=== PATIENT | male | born 1945 | race Caucasian/White ===

== ENCOUNTER 2019-07-13 22:59 | Observation (INO) ==
[2019-07-13] MEDS ORDERED: APRESOLINE IV ONE (23:33)
--- NOTE | 2019-07-13 23:41 | PROVIDER DOCUMENTATION ---
This chart was entered by Evangelina Spann Scribe, acting as scribe for Jose Miguel Figueroa MD. HPI-General Adult - General Stated Complaint: HIGH BP/TINGLING IN CHEEK&HANDS Time Seen by Provider: 07/13/19 23:21 Source: patient Allergies/Adverse Reactions: Patient Allergies Allergy/AdvReac Type Severity Reaction Status Date / Time Penicillins Allergy Intermediate RASH Verified 07/13/19 23:49 Home Medications: Home Medication List Medication Instructions Recorded Confirmed Last Taken Type Latanoprost 0.005% Oph Soln 1 drop BOTH EYES HS 11/28/13 07/13/19 06/02/19 History [Xalatan 0.005% Oph Soln] Metformin [Glucophage] 2 tab PO QHS 05/13/17 07/13/19 06/02/19 History Amiodarone HCl 200 mg PO QAM 05/26/19 07/13/19 06/03/19 History Apixaban [Eliquis] 5 mg PO BID 05/26/19 07/13/19 06/03/19 History Dorzolamide 2% Oph Soln [Trusopt 1 drp BOTH EYES BID 07/13/19 07/13/19 Unknown History 2% Oph Soln] Losartan/Hydrochlorothiazide 12.5 mg PO QAM 07/13/19 07/13/19 Unknown History [Hyzaar 100-12.5 Tablet] Metoprolol Succinate [Toprol Xl] 200 mg PO QAM 07/13/19 07/13/19 Unknown History Potassium Chloride [Klor-Con M20] 20 meq PO QAM 07/13/19 07/13/19 Unknown History SIMVAstatin [Zocor] 20 mg PO QPM 07/13/19 07/13/19 Unknown History - History of Present Illness -Gen Adult Nature of Presenting Problems: Pt is a 74 yom who presents to the ED via private car w/ a c/o of high BP. Pt states his blood pressure was 166/119. Pt reports flushed face and tingling of the left check. Pt denies chest pain, fever, and nausea. Pt states he takes Hyzaar for his high blood pressure. Upon arrival to ED pt complained of chest pain and SOB to the triage nurse, but denied it during examination w/ provider. Location of Pain/Injury: reports: none Pain Radiation: reports: no radiation Quality of Pain: reports: none Severity: reports: mild Onset/Duration: reports: just prior to arrival Timing: reports: still present Associated Symptoms: reports: other (see hpi) Similar Symptoms Previously?: Yes Recently seen or treated by another doctor?: No Review of Systems - Adult - REVIEW OF SYSTEMS - ADULT Constitutional: reports: see HPI Eyes: reports: no symptoms reported Ears, Nose, Mouth & Throat: reports: no symptoms reported Cardiovascular: reports: no symptoms reported Respiratory: reports: no symptoms reported Gastrointestinal: reports: no symptoms reported Genitourinary: reports: no symptoms reported Musculoskeletal: reports: no symptoms reported Integumentary: reports: no symptoms reported Neurological: reports: no symptoms reported Psychiatric: reports: no symptoms reported Endocrine: reports: no symptoms reported Hematologic/Lymphatic: reports: no symptoms reported Allergic/Immunologic: reports: no symptoms reported All Other Systems: Reviewed and Negative Past History - Adult - PAST MEDICAL HISTORY-ADULT Review of Records: reports: Old Records Reviewed, Nursing Assessment Review, Medications Reviewed, Social history reviewed & non-contributory. Major Childhood Illnesses: reports: denies history Cardiovascular: reports: A-Fib, HTN, hyperlipidemia, pacemaker Respiratory: reports: sleep apnea Gastrointestinal: reports: denies history Obstetrical/Gynecological: reports: denies history Genitourinary: reports: denies history Musculoskeletal: reports: denies history Neurological: reports: denies history Endocrine/Immune: reports: Diabetes Other Conditions: reports: denies history - PRIOR SURGERIES/PROCEDURES Surgical/Procedure History: reports: pacemaker, tonsillectomy, hernia repair, other (TURP) - IMMUNIZATION STATUS Childhood Immunizations: See Nurse Assessment Flu Vaccine: See Nurse Assessment - FAMILY HISTORY Family History: reviewed, not pertinent - SOCIAL HISTORY Smoking: pipe Substance Use: none/never, denies Alcohol Use Frequency: never Physical Exam-General - PHYSICAL EXAM-ADULT Initial Vital Signs Reviewed: Yes - CONSTITUTIONAL General Appearance: alert, no apparent distress - EYES Eyes: PERRL/EOMI - HEAD, EARS, NOSE, MOUTH & THROAT HENMT: moist mucous membranes - NECK Neck: non-tender, full range of motion - RESPIRATORY Respiratory: chest non-tender, lungs clear, normal breath sounds, no pleuratic chest pain, no respiratory distress - CARDIOVASCULAR Cardiovascular: normal peripheral pulses, regular rate, rhythm, no edema, no gallop, no JVD, no murmur - GASTROINTESTINAL (ABDOMEN) Abdominal Exam: non tender, soft - MUSCULOSKELETAL Extremity: normal range of motion, non-tender - SKIN Integumentary: normal color, warm/dry - NEUROLOGIC Neurologic: grossly normal, no motor/sensory deficits - PSYCHIATRIC Psych/Mental Status: oriented x 3, anxious Progress - PLAN OF CARE/RESULTS Progress/Plan/Lab Results: Vital Signs - 8 hr 07/13/19 23:05 Temperature 97.9 F Pulse Rate 76 Respiratory Rate 20 Blood Pressure 163/129 O2 Sat by Pulse Oximetry 95 Result Diagrams: 07/14/19 00:06 07/14/19 00:06 - EKG 1 Time of EKG reading by physician:: 23:16 EKG Read and Signed by:: Jose Miguel Figueroa EKG Interpretation (*Must complete 3 of following elements*): Abnormal (AV dual- paced rhythm with frequent ventricular-paced complexes) Rate: 70 Rhythm: AV dual-paced rhythm with frequent ventricular-paced complexes [place]: normal QRS: normal MT Interval: normal ST Wave: normal - CONSULTS/PCP/HOSPITALIST Notification #1 *Consult/PCP/Hospitalist*: Dr. Rudolph, hospitalist Time Discussed: 01:15 Consult Disposition: Admit Departure - Departure Date of Disposition Decision: 07/13/19 Time of Disposition Decision: 01:25 DIAGNOSIS: Uncontrolled hypertension Chest pain Qualifiers: Chest pain type: unspecified Qualified Code(s): R07.9 - Chest pain, unspecified Disposition: ADMITTED INPATIENT 09 Certified Medical Emergency: Emergent Condition: Stable Additional Instructions: ED Follow Up Instructions: You have been treated by a care provider in the Emergency Department. These instructions are being provided to you so you can have an understanding of how to care for yourself upon discharge. Upon discharge from the Emergency Department, you are responsible for making arrangements for follow-up care by a physician of your choice. Take all prescribed medications as directed. Return to the Emergency Department immediately for any new or worsening symptoms. You may call the Physician Referral phone number at [phone] to obtain a list of Physicians who are taking new patients. Referrals and Follow-Ups: Barber Mancia MD [Primary Care Provider] - - Critical Care Note This patient required my direct & personal management of CC.: No Attestation - Physician/ SCAR Attestation Patient care was provided by Advanced Practice Provider:: No The physician spent face to face time with patient:: Yes Advanced Practice Provider documentation review:: Supervising physician onsite and consulted in the evaluation and care of this patient. The physician did have a face to face encounter with the patient. - HEART Score HEART Score: History: Slightly Suspicious HEART Score: ECG: Normal HEART Score: Age: > or = 65 Years HEART Score: Risk Factors for Atherosclerotic Disease: > or = 3 Risk Factors or History of Atherosclerotic Disease HEART Score: Troponin: < or = Normal Limit Total HEART Score:: 4 This chart was documented by the indicated scribe, (Evangelina Spann, [place]) and accurately reflects the services I performed and decisions made by me, Jose Miguel Figueroa MD, as attested by the provider's signature.
[2019-07-14 00:19] LABS: BASO# 0.02 X1000 (0.0-0.2); BASO% 0.4 % (0.0-0.8); EOS# 0.11 X1000 (0.0-0.7); EOS% 2.1 % (0.0-10.0); HEMATOCRIT 43.1 % (42.0-52.0); HEMOGLOBIN 15.1 g/dL (14.0-18.0); LYMPH% 28.2 % (20.5-51.1); MCH 30.8 PG (27-31); MCV 87.8 FL (81-99); MONO# 0.34 X1000 (0.11-0.59); MONO% 6.4 % (1.7-9.3); MPV 10.6 FL (7.4-10.4); NEUT# 3.35 X1000 (1.4-6.5); NEUT% 62.9 % (42.2-75.2); PLT 118 X1000 (130-400); RBC 4.91 XMIL (4.7-6.1); RDW 13.6 % (11.5-14.5); WBC 5.32 X1000 (4.8-10.8)
[2019-07-14 00:49] LABS: AGAP 13; ALB/GLOB RATIO 1.6; ALKALINE PHOSPHATASE 47 U/L (32-122); BUN 13 mg/dL (8-22); CALCIUM 8.9 mg/dL (8.8-10.2); CHLORIDE 105 mmol/L (98-107); CK PROFILE 164 U/L (24-204); COSMO 289; CREATININE 1.1 mg/dL (0.7-1.2); ESTIMATED GFR > 60; GLUCOSE 142 mg/dL (70-104); GOT 18 U/L (10-34); GPT 17 U/L (10-44); POTASSIUM 2.8 mmol/L (3.5-5.1); SODIUM 144 mmol/L (136-145); TCO2 26 mmol/L (25-35); TOTAL BILIRUBIN 1.03 mg/dL (0.20-1.00); TOTAL PROTEIN 6.5 g/dL (6.3-8.3)
[2019-07-14] MEDS ORDERED: ASPIRIN PO ONE (01:08)
[2019-07-14] MEDS ORDERED: KLOR-CON PO ONE (01:12)
--- NOTE | 2019-07-14 01:40 | EKG Report ---
Test Performed on : 07/13/2019 11:16:49 PM Test Reason : elevated bp Blood Pressure : / mmHG Vent. Rate : 070 BPM Atrial Rate : 070 BPM P-R Int : 164 ms QRS Dur : 154 ms QT Int : 508 ms P-R-T Axes : 000 -01 134 degrees QTc Int : 548 ms AV dual-paced rhythm with frequent ventricular-paced complexes Abnormal ECG When compared with ECG of 13-JUL-2019 23:15, (Unconfirmed) Vent. rate has decreased BY 6 BPM Unconfirmed Result
[2019-07-14] MEDS ORDERED: NITROGLYCERIN SL PRN (03:25)
[2019-07-14] MEDS ORDERED: ZOFRAN IV PRN (03:25)
[2019-07-14] MEDS ORDERED: TYLENOL PO PRN (03:25)
[2019-07-14] MEDS ORDERED: POTASSIUM CHLORIDE 20 MEQ/SWI 20 MEQ/100 ML IVPB IV ONE (03:25)
[2019-07-14] MEDS ORDERED: NS 250 ML ONE (04:12)
--- NOTE | 2019-07-14 05:08 | HISTORY AND PHYSICAL ---
PRIMARY CARE PHYSICIAN: Dr. Barber Mancia. CHIEF COMPLAINT: Elevated blood pressure and chest tightness. HISTORY OF PRESENTING ILLNESS: A 74-year-old male with a history of atrial fibrillation, diabetes mellitus type 2, hypertension, hyperlipidemia, who presented to emergency department with several weeks of history of having elevated blood pressure, and recently he was having some chest tightness. He states his blood pressure was staying around 170s or so systolic and he was concerned. He presented to emergency department. He stated that he had some chest tightness and subsequently it was thought that we will place him for observation for further evaluation and management. At the time of my examination, patient denied any headache, fever, chills, nausea, vomiting, diarrhea, hemoptysis, melena or weight changes, but complained of chest tightness. PAST MEDICAL HISTORY: Include diabetes mellitus type 2, hypertension, hyperlipidemia, atrial fibrillation. PAST SURGICAL HISTORY: Pacemaker, prostate surgery. ALLERGIES: Penicillin. CURRENT MEDICATIONS: Amiodarone 200 mg p.o. q.a.m., Eliquis 5 mg p.o. b.i.d., losartan HCT 100- 12.5 one p.o. daily, metformin 1000 mg p.o. at bedtime, metoprolol 200 mg p.o. q.a.m., simvastatin 20 mg p.o. q.p.m. SOCIAL HISTORY: He smokes a pipe. No history of alcohol or illicit drug use. FAMILY HISTORY: No history of coronary disease. REVIEW OF SYSTEMS: Fourteen-point review of system as listed in HPI. Other systems negative. PHYSICAL EXAMINATION: GENERAL: Cooperative, friendly obese male. He is without any respiratory distress. VITAL SIGNS: Temperature 98 degrees, pulse 67, respirations 21, blood pressure 156/86. HEENT: Atraumatic, normocephalic. Extraocular movements intact. PERRLA. NECK: No masses. CHEST: Clear to auscultation. CARDIOVASCULAR: Regular rate and rhythm. ABDOMEN: Soft. Positive bowel sounds. EXTREMITIES: No edema. NEUROLOGIC: He is awake, alert, oriented x3. GENITOURINARY: No bladder distention. SKIN: Warm. LABORATORIES AND STUDIES: Sodium 144, potassium 2.8, chloride 105, CO2 is 26, BUN is 13, creatinine is 1.1. Glucose 142. WBC 5.32, hemoglobin 15.1, hematocrit 42.1, platelets 118,000. ASSESSMENT: This is a 74-year-old male with a history of diabetes mellitus type 2, hypertension, atrial fibrillation, and hyperlipidemia who presented to the emergency department due to concerns of elevated blood pressure and chest tightness. He was evaluated in the ED and due to his presenting symptoms, we will place him for observation for further evaluation and management. 1. Chest tightness. 2. Elevated blood pressure. 3. Hypokalemia. 4. Atrial fibrillation. 5. Diabetes mellitus type 2. PLAN: 1. We will admit patient to medical floor with telemetry. 2. Continue with cardiac workup. Check EKG, serial cardiac enzymes. Have patient continue on aspirin. We will use sublingual nitroglycerin p.r.n. chest pain. 3. 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 4. Monitor blood pressure closely and resume antihypertensive agents. 5. We will optimize his electrolytes and replace his potassium. 6. Monitor patient on telemetry and continue his amiodarone and Eliquis. 7. We will monitor blood glucose and put patient on sliding scale insulin regimen. 8. The patient is on Eliquis and this will suffice for DVT prophylaxis. 9. We will continue to follow and reassess, make further recommendation based on patient's clinical course. cc: MD Barber Blancas MD
[2019-07-14 05:55] LABS: BASO# 0.03 X1000 (0.0-0.2); BASO% 0.5 % (0.0-0.8); EOS# 0.13 X1000 (0.0-0.7); EOS% 2.2 % (0.0-10.0); HEMATOCRIT 42.8 % (42.0-52.0); HEMOGLOBIN 14.8 g/dL (14.0-18.0); LYMPH# 1.98 X1000 (1.2-3.4); LYMPH% 32.8 % (20.5-51.1); MCH 30.8 PG (27-31); MCHC 34.6 g/dL (33-37); MONO# 0.51 X1000 (0.11-0.59); MONO% 8.5 % (1.7-9.3); MPV 11.1 FL (7.4-10.4); NEUT# 3.38 X1000 (1.4-6.5); PLT 128 X1000 (130-400); RBC 4.81 XMIL (4.7-6.1); RDW 13.7 % (11.5-14.5); WBC 6.03 X1000 (4.8-10.8)
[2019-07-14 06:09] LABS: AGAP 14; ALB/GLOB RATIO 1.5; ALBUMIN 3.9 g/dL (3.5-5.0); ALKALINE PHOSPHATASE 47 U/L (32-122); BUN 13 mg/dL (8-22); CALCIUM 8.5 mg/dL (8.8-10.2); CHLORIDE 103 mmol/L (98-107); COSMO 289; CREATININE 1.1 mg/dL (0.7-1.2); ESTIMATED GFR > 60; GLUCOSE 142 mg/dL (70-104); GOT 18 U/L (10-34); GPT 17 U/L (10-44); HEMOGLOBIN A1C 5.5 % (4.8-6.0); POTASSIUM 2.9 mmol/L (3.5-5.1); SODIUM 144 mmol/L (136-145); TCO2 27 mmol/L (25-35); TOTAL BILIRUBIN 0.85 mg/dL (0.20-1.00); TOTAL PROTEIN 6.5 g/dL (6.3-8.3)
[2019-07-14 06:19] LABS: FREE T4 1.53 ng/dL (0.93-1.70); TSH 2.8 uIUmL (0.27-4.20)
[2019-07-14] MEDS: PRILOSEC PO SCH (06:50)
[2019-07-14] MEDS ORDERED: HYZAAR 100/12.5 MG TAB PO SCH (09:00)
[2019-07-14] MEDS ORDERED: ASPIRIN PO SCH (09:00)
[2019-07-14 11:01] LABS: CHOLESTEROL 135 mg/dL (0-200); HDL 39 mg/dL (35-55); LDL 79 mg/dL; TRIGLYCERIDES 83 mg/dL (39-160); VLDL 17 mg/dL
--- NOTE | 2019-07-14 11:15 | EKG Report ---
Test Performed on : 07/14/2019 10:09:19 AM Test Reason : htn Blood Pressure : / mmHG Vent. Rate : 060 BPM Atrial Rate : 060 BPM P-R Int : 162 ms QRS Dur : 150 ms QT Int : 522 ms P-R-T Axes : 000 -02 165 degrees QTc Int : 522 ms AV dual-paced rhythm with occasional ventricular-paced complexes Abnormal ECG Confirmed by Miriam AMOS, Geoff Valladares ([id number]) on 07/14/2019 7:43:35 PM
[2019-07-14] MEDS: ALTACE PO SCH ×2 (12:45→21:18)
[2019-07-14] MEDS: TOPROL XL PO SCH (12:45)
[2019-07-14] MEDS: CORDARONE PO SCH (12:45)
[2019-07-14] MEDS: ELIQUIS PO SCH ×2 (12:45→21:18)
[2019-07-14 13:53] LABS: CALCIUM 8.4 mg/dL (8.8-10.2); CREATININE 1.2 mg/dL (0.7-1.2); MAGNESIUM 1.9 mg/dL (1.5-2.7); POTASSIUM 3.8 mmol/L (3.5-5.1)
[2019-07-14] MEDS: TRUSOPT 2% OPH SOLN BOTH EYES SCH ×2 (15:09→21:18)
--- NOTE | 2019-07-14 17:32 | CARDIOLOGY CONSULTATION ---
DATE: 07/14/2019 CONSULTATION REQUESTED BY: Hospitalist service. REASON FOR CONSULTATION: Patient with uncontrolled hypertension, feeling numbness and tingling in the left side of face and arm. HISTORY: Mr. Saha is a 74-year-old male patient of mine who presented to the ER last night at about 11:30 p.m., complaining of a few days where his blood pressure has been erratic going up to 166/119. He has felt funny in the face, flushed. He has had some tingling in the left arm and in the face. He has not experienced chest pain. In the ER, there was some funny discomfort that he noticed and they decided to keep him in the hospital for evaluation. When they did the first EKG, they noted that he has a dual paced activity. That is his normal. There was some PVC noted. They have not done a chest x-ray on him. At this time, he is feeling just fine, comfortable. PAST HISTORY: Positive for a dilated nonischemic cardiomyopathy. He has normal coronary arteries per most recent heart catheterization in October 2018. He has history of hypertension, diabetes mellitus type 2. He has a sleep apnea syndrome. He has had paroxysmal atrial fibrillation. He also has had frequent PVCs which we had to suppress with amiodarone. He has morbid obesity. SURGICAL HISTORY: He has had prostatectomy, tonsillectomy. He has had implantation of a biventricular pacemaker device on 11/04/2018. That is working fine. SOCIAL HISTORY: He is , retired. He lives at home. He is not a smoker nor a drinker. FAMILY HISTORY: Positive for heart disease and stroke. HOME MEDICATIONS: At this time included amiodarone 200 mg daily, apixaban 5 mg twice a day, losartan-hydrochlorothiazide 100-12.5 daily, metformin 2 tablets at bedtime, metoprolol XL 200 daily, potassium chloride 20 mEq daily, simvastatin 20 mg at bedtime. ALLERGIES: Penicillin. REVIEW OF SYSTEMS: The patient has recently been in and out of the hospital. He did have some fecal impaction and he noted some blood in the stools. Subsequently, he also had hematuria and that has been managed by Dr. Vick Amado from the urology service. They did a CT scan of his pelvis and kidneys on May 05 that showed mild fatty infiltration of liver, 9 x 6 mm stone at posterior urinary bladder neck, colonic diverticulosis. Eventually his stone was retrieved and he had surgery done on May [address] Amado did holmium laser cystolitholapaxy of the bladder stone. Since then, he has been doing better. No other issues. He is physically active at home. He has been trying to follow a diet and he says that he has lost about 19 pounds since his last visit with me which took place on 02/03/2019. At that time, the patient was stable from the viewpoint of his paroxysmal atrial fibrillation and his palpitations had been controlled with amiodarone. PHYSICAL EXAMINATION: Vital signs: Blood pressure is 140/84, temperature 97.1 degrees, pulse 60, respirations 15. General: Patient is awake, alert, in no distress. HEENT: Unremarkable. Chest: Clear to auscultation and percussion. Heart: Sounds are regular rhythmic. I do not hear a gallop or murmur. Abdomen: Obese, nontender. Extremities: Show good pulses. No peripheral edema. Neurological: Nonfocal. Moves 4 extremities. BLOOD WORK: Sodium 144, potassium 2.9, BUN 13, creatinine 1.1. Hemoglobin 14.8, hematocrit 42.8. IMPRESSION: 1. Patient who presents with [id number] hypertension. 2. Patient with history of dilated nonischemic cardiomyopathy status post biventricular pacemaker. 3. History of no significant coronary heart disease. 4. Obstructive sleep apnea syndrome. 5. History of diabetes mellitus type 2. 6. Morbid obesity. 7. History of paroxysmal atrial fibrillation. 8. Frequent premature ventricular contractions on antiarrhythmic therapy with amiodarone. RECOMMENDATION: 1. At this time, I will switch his antihypertensives from Hyzaar to ramipril 10 mg b.i.d. and see how he does with that. 2. We will ask him to monitor his blood pressure twice a day at home and I will see him back in my office in about 1 month. 3. We will observe him over the next few hours in the hospital and I believe he may be discharged home in the morning if everything else looks all right. 4. His proBNP level was slightly elevated, however I am not very concerned about that. We might think about putting him on a spironolactone low-dose to optimize his heart failure. 5. Of note, his lipid panel from July 14 shows LDL 79, HDL 39, total cholesterol 135, triglycerides 83. 6. His TSH, free T4, and liver function tests were all normal. I discussed the case with Dr. Mancia and thank you for asking us to participate in his evaluation. cc: MD Barber Millard MD
--- NOTE | 2019-07-14 17:33 | PROGRESS NOTE ---
DATE: 07/14/2019 SUBJECTIVE: Mr. Saha is a 74-year-old white gentleman admitted with elevated blood pressure and chest pain. The patient has a known case of cardiomyopathy, hypertension, diabetes mellitus and hyperlipidemia, not doing well lately. His blood pressure was labile. Evaluated in the ER and admitted for further care. The patient's initial cardiac isoenzymes were negative. His potassium was low. The patient was evaluated by Cardiology. I discussed the patient's presentation with Dr. Phillip, who knows him very well. MEDICAL PROBLEMS: 1. Uncontrolled hypertension, doing well. 2. Chest pain. According to the building architect, the patient had normal coronaries. 3. Morbid obesity. The patient lost weight, which was voluntary. 4. History of prostate cancer. 5. Gastritis and reflux disease. 6. Hypokalemia, improved. LABORATORY DATA: His TSH is 2.8. Free T4 is 1.53. PHYSICAL EXAMINATION: Vital Signs: Noted. Neck: Supple. No JVD. Lungs: Bibasilar crepitus. Heart: S1 and S2 heard, 2/6 systolic murmur at apex. Abdomen: Soft, globular. Bowel sounds present. TIME LOCK EXPERT: Alert, awake. Able to move all 4 limbs. PLAN: The plan is stop Hyzaar and change him to Altace 10 mg twice a day. Continue rest of medicines. Monitor blood pressure at home. If clinical condition permits, will discharge him home tomorrow, to follow up with me in a week's time. Hopefully the patient will go home tomorrow. cc: Barber Mancia MD
[2019-07-14] MEDS ORDERED: ZOCOR PO SCH (21:00)
[2019-07-14] MEDS ORDERED: XALATAN 0.005% OPH SOLN BOTH EYES SCH (21:00)
[2019-07-15] MEDS: PRILOSEC PO SCH (06:02)
--- NOTE | 2019-07-15 06:27 | EKG Report ---
Test Performed on : 07/15/2019 06:14:54 AM Test Reason : htn, hyperkalemia Blood Pressure : / mmHG Vent. Rate : 062 BPM Atrial Rate : 063 BPM P-R Int : 164 ms QRS Dur : 154 ms QT Int : 526 ms P-R-T Axes : 000 007 139 degrees QTc Int : 533 ms AV dual-paced rhythm with occasional ventricular-paced complexes Abnormal ECG Confirmed by Miriam AMOS, Geoff Valladares ([id number]) on 07/17/2019 9:41:21 PM
[2019-07-15] MEDS: TRUSOPT 2% OPH SOLN BOTH EYES SCH (10:25)
[2019-07-15] MEDS: TOPROL XL PO SCH (10:26)
[2019-07-15] MEDS: ELIQUIS PO SCH (10:26)
[2019-07-15] MEDS: ALTACE PO SCH (10:26)
[2019-07-15] MEDS: CORDARONE PO SCH (10:26)
[2019-07-15 11:37] VITALS: BP 138/73
--- NOTE | 2019-07-15 12:30 | PROGRESS NOTE ---
DATE: 07/15/2019 SUBJECTIVE: Mr. Saha is doing better. His electrolytes status is normal. His troponins are negative. EKG shows dual-chamber pacemaker with pacemaker rhythm. He has not been seen by Dr. Phillip yet. Dr. Phillip is going to decide about further discharge. OBJECTIVE: Vital Signs: His vital signs are stable. Blood pressure was 138/73. His medications have been about the same except that he has been placed on ramipril 10 mg b.i.d. Continue with the current management. -3 cc: MD Barber Lopez MD
[2019-07-15] MEDS ORDERED: ZOFRAN PO PRN (14:00)
== END 2019-07-15 15:05 | disposition home or self-care (01) ==
LOC: 1N 22:59 → ED 22:59 → SUATTDRO 07-14 02:21
PROVIDERS: ADMIT Internal Medicine; ATTEND Internal Medicine

== ENCOUNTER 2019-10-20 06:22 | Observation (INO) ==
[2019-10-20] MEDS ORDERED: LEVAQUIN 500 MG/D5W 500 MG/100 ML IVPB ONE (06:45)
[2019-10-20] MEDS ORDERED: LR 500 ML ONE ×2 (06:45→10:29)
[2019-10-20] MEDS ORDERED: DIPRIVAN 1% ONE (07:15)
[2019-10-20] MEDS ORDERED: XYLOCAINE-MPF 2% ONE (07:15)
[2019-10-20] MEDS ORDERED: BACITRACIN ONE (07:44)
[2019-10-20] MEDS ORDERED: GENTAMICIN ONE (07:44)
[2019-10-20] MEDS ORDERED: MARCAINE 0.25% PF/EPI 1:200,000 INJ ONE (08:00)
[2019-10-20] MEDS ORDERED: DECADRON ONE (09:18)
[2019-10-20] MEDS ORDERED: ZOFRAN ONE (09:18)
[2019-10-20] MEDS: DILAUDID ONE ×3 (10:15→12:47)
--- NOTE | 2019-10-20 10:32 | EKG Report ---
Test Performed on : 10/20/2019 10:22:34 AM Test Reason : POST OP CP Blood Pressure : / mmHG Vent. Rate : 060 BPM Atrial Rate : 258 BPM P-R Int : 178 ms QRS Dur : 148 ms QT Int : 528 ms P-R-T Axes : 000 -23 144 degrees QTc Int : 528 ms AV dual-paced rhythm Abnormal ECG When compared with ECG of 23-JUL-2019 21:51, (Unconfirmed) premature ventricular complexes. are no longer present Confirmed by Albin AMOS, Timothy Rainey ([id number]) on 10/20/2019 12:24:18 PM
[2019-10-20] MEDS ORDERED: SALINE LOCK IV FLUID XX ONE (10:56)
[2019-10-20] MEDS ORDERED: TYLENOL PO PRN (10:56)
[2019-10-20] MEDS ORDERED: ZOFRAN IV PRN (10:56)
--- NOTE | 2019-10-20 11:22 | CARDIOLOGY CONSULTATION ---
DATE: 10/20/2019 HISTORY OF PRESENT ILLNESS: The patient underwent a male sling procedure for urinary incontinence, and postoperatively was noted to have chest pain and hypotension and was given epinephrine blood pressure 3 mg intermittently and blood pressure normalized. The patient had complained of chest pain as well. Cardiology was consulted. At the time of my examination, patient feels comfortable. Does not complain of any chest pain. His blood pressure was back to normal at 106/61. He has an extensive cardiac history as listed below. The patient was sedated. REVIEW OF SYSTEMS: A 14-point review of systems was obtained from the patient.Gastrointestinal: He does not complain of any nausea, no recent hematemesis or melena. Central Nervous System: No focal weakness to suggest a CVA or TIA. Genitourinary System: As above. PAST MEDICAL HISTORY: 1. Dilated cardiomyopathy, status post BiV upgrade. Repeat echocardiogram was done to assess left ventricular systolic function. This was at [facility]. Ejection fraction was 30% to 35%. There is mild to moderate mitral regurgitation. 2. Patient had [employer] BiV upgrade device. 3. History of complete AV block. 4. Paroxysmal atrial fibrillation. 5. Anticoagulation therapy. 6. Hyperlipidemia. 7. Diabetes. 8. Obstructive sleep apnea. 9. Gastroesophageal reflux disease. 10. Cardiac catheterization on 10/13/2018. Ejection fraction was 30% to 35%. There was no evidence of angiographic coronary artery disease. HOME MEDICATIONS: Include Altace 10 mg a day, Norvasc 5 mg a day, metoprolol 200 mg once a day, amiodarone 200 mg 1/2 tablet daily, Eliquis 5 mg twice daily, ophthalmic eye drops, Atorvastatin 20, metformin 500 mg 2 tablets at bedtime, potassium supplements. PHYSICAL EXAMINATION: Vital Signs: Blood pressure 106/60. Cardiac: First and second heart sounds were heard. There was no S3 gallop. Respiratory System: Normal air entry. There are no crepitations or rhonchi. Abdomen: Soft, nontender. Bowel sounds were heard. Central Nervous System: Alert, sedated. Was moving extremities. Detailed central nervous system examination not performed. ASSESSMENT AND PLAN: Mr. Ruy Saha is a 74-year-old gentleman who underwent urethral sling procedure surgery for urinary incontinence. Postoperatively, he had complained of chest pain and was noted to be hypotensive. He was given epinephrine as described above. Currently, he is stable, does not complain of any chest pain. RECOMMENDATIONS: 1. We will observe him overnight. 2. Restart his home medications. The patient stated that he had a problem with his elevated blood pressure and was on multiple medications. This was in the recent past. However, he was noted to be hypotensive. We will restart his home medications from tomorrow. 3. He underwent a urology procedure and Eliquis has been held. We will restart as recommended by Urology. 4. Status post AICD placement with BiV upgrade functioning appropriately. 5. History of paroxysmal at atrial fibrillation, and he is anticoagulated for the same. Recommendations for restarting anticoagulation as planned by Urology. 6. Hyperlipidemia. Continue with atorvastatin. 7. He was on amiodarone for paroxysmal atrial fibrillation. I would recommend continuing the medications. Thank you for the consult. cc: Teddy Mcgovern MD
[2019-10-20 11:24] LABS: AGAP 10; BUN 16 mg/dL (8-22); CHLORIDE 108 mmol/L (98-107); COSMO 286; ESTIMATED GFR > 60; GLUCOSE 130 mg/dL (70-104); POTASSIUM 3.7 mmol/L (3.5-5.1); SODIUM 142 mmol/L (136-145); TCO2 24 mmol/L (25-35)
[2019-10-20 11:29] LABS: HEMATOCRIT 39.1 % (42.0-52.0); HEMOGLOBIN 13.2 g/dL (14.0-18.0); MCH 30.9 PG (27-31); MCHC 33.8 g/dL (33-37); MCV 91.6 FL (81-99); MPV 11.2 FL (7.4-10.4); RBC 4.27 XMIL (4.7-6.1); WBC 5.68 X1000 (4.8-10.8)
[2019-10-20 11:40] LABS: CK PROFILE 241 U/L (24-204)
[2019-10-20 12:13] LABS: CK INDEX 1.2 (0.0-2.5); CK-MB 2.93 ng/mL (0.0-5.0)
[2019-10-20] MEDS ORDERED: PYRIDIUM PO PRN (12:43)
[2019-10-20] MEDS ORDERED: DEMEROL IV PRN (12:44)
[2019-10-20] MEDS ORDERED: DEMEROL IM PRN (12:45)
[2019-10-20] MEDS ORDERED: PHENERGAN IV PRN (12:45)
[2019-10-20] MEDS ORDERED: NORCO-7.5 PO PRN (12:45)
[2019-10-20] MEDS ORDERED: SODIUM CHLORIDE 0.9% INJ PRN (12:45)
[2019-10-20] MEDS ORDERED: NORCO-10 PO PRN (12:45)
[2019-10-20] MEDS ORDERED: PHENERGAN IM PRN (12:45)
[2019-10-20] MEDS ORDERED: NORCO-5 PO PRN (12:45)
[2019-10-20] MEDS: TRUSOPT 2% OPH SOLN BOTH EYES SCH ×2 (13:08→21:18)
[2019-10-20] MEDS: CORDARONE PO SCH (13:08)
[2019-10-20] MEDS: VITAMIN B-12 PO SCH (13:09)
[2019-10-20] MEDS: KLOR-CON PO SCH (13:09)
[2019-10-20] MEDS: VITAMIN D PO SCH (13:09)
[2019-10-20 16:20] LABS: CK-MB 3.81 ng/mL (0.0-5.0)
[2019-10-20] MEDS ORDERED: LOVENOX SUBQ SCH (21:00)
[2019-10-20] MEDS ORDERED: LIPITOR PO SCH (21:00)
[2019-10-20] MEDS ORDERED: XALATAN 0.005% OPH SOLN BOTH EYES SCH (21:00)
[2019-10-20] MEDS ORDERED: GLUCOPHAGE PO SCH (21:00)
[2019-10-21 02:03] LABS: CK-MB 3.17 ng/mL (0.0-5.0)
--- NOTE | 2019-10-21 07:07 | EKG Report ---
Test Performed on : 10/21/2019 06:09:41 AM Test Reason : chest pain Blood Pressure : / mmHG Vent. Rate : 060 BPM Atrial Rate : 060 BPM P-R Int : 176 ms QRS Dur : 150 ms QT Int : 520 ms P-R-T Axes : 000 -28 176 degrees QTc Int : 520 ms AV dual-paced rhythm Abnormal ECG When compared with ECG of 20-OCT-2019 10:22, No significant change was found Confirmed by Albin AMOS, Timothy Rainey ([id number]) on 10/23/2019 10:25:21 PM
[2019-10-21] MEDS: VITAMIN B-12 PO SCH (08:35)
[2019-10-21] MEDS: VITAMIN D PO SCH (08:35)
[2019-10-21] MEDS: TRUSOPT 2% OPH SOLN BOTH EYES SCH (08:36)
[2019-10-21] MEDS: KLOR-CON PO SCH (08:37)
[2019-10-21] MEDS: CORDARONE PO SCH (08:40)
[2019-10-21] MEDS ORDERED: NORVASC PO SCH (09:00)
[2019-10-21] MEDS ORDERED: TOPROL XL PO SCH (09:00)
[2019-10-21] MEDS ORDERED: ALTACE PO SCH (09:00)
[2019-10-21 09:20] LABS: CK-MB 3.43 ng/mL (0.0-5.0)
--- NOTE | 2019-10-21 11:36 | PROGRESS NOTE ---
DATE: 10/21/2019 SUBJECTIVE: Mr. Saha reports he had a good night overnight. He denies chest pains. He does report right upper quadrant abdominal discomfort related to gas. He was observed overnight secondary to episode of hypotension and reported transient chest pain. OBJECTIVE: Vital Signs: Temperature 97.6 degrees, pulse 60, blood pressure 122/62, urine output recorded amount of 1200 mL. General: No acute distress. Abdomen: Soft, nontender, and nondistended. Genitourinary: Rolle catheter in place draining straw-colored urine. Perineal incision is intact. There was appropriate ecchymosis over the scrotum and perineal area. ASSESSMENT AND PLAN: A 74-year-old male cyst postop day 1, status post advanced XP male sling placement who had an episode of hypotension and chest pain in recovery room. He was admitted overnight per cardiology recommendations. Discussed with the patient that from a urologic standpoint we will remove his Rolle catheter today, and once he voids, he will be cleared to go home as long as Dr. Pierre is okay with that. PLAN: 1. Remove Rolle catheter. 2. Okay to discharge home once cleared by Dr. Mcgovern. 3. I plan on seeing him in 2 weeks in clinic with postvoid residual or sooner if there is a problem. 4. He was instructed to restart his Eliquis on 10/23/2019. cc: MD Barber Ventura MD
[2019-10-21 15:57] VITALS: BP 126/71
--- NOTE | 2019-11-20 11:54 | OPERATIVE NOTE ---
PROCEDURE DATE: 10/20/2019 SURGEON: Vick Amado MD. PREOPERATIVE DIAGNOSIS: Post prostatectomy stress urinary incontinence. POSTOPERATIVE DIAGNOSIS: Post prostatectomy stress urinary incontinent. PROCEDURE: Advance XP sling placement, cystourethroscopy. INDICATIONS: A 74-year-old male with history of prostate cancer who underwent robotic prostatectomy in 2013. He had developed gross hematuria and bladder stone and underwent cystolitholapaxy in May 2019. He has had worsening urinary incontinence and desires surgical correction. FINDINGS: He was fairly oozy throughout the case. He did hold his blood thinners perioperatively but appeared to very easily bleed. He is morbidly obese with BMI of 41.7. At the conclusion of the sling placement, cystourethroscopy showed no evidence of injury to the bladder or the urethra and excellent mucosal coaptation. DESCRIPTION OF PROCEDURE: After informed obtained informed consent, patient was brought to the operating room. Perioperative antibiotics and anesthesia were administered. He was placed in lithotomy position with upper and lower extremities appropriately padded. A 14-[place] Rolle catheter was introduced without difficulty. Then 10 mL of Marcaine was used at the perineal area for local anesthetic. Approximately a 5 cm incision was made at the level of perineum, dissection extending through subcutaneous tissues and fat until bulbar cavernosus muscle was encountered. It was sharply divided and corpus spongiosum came into the view. It was dissected laterally until surgeon's finger was able to palpate the apex of ischial rami. We then dissected posteriorly to the level of the central tendon which was easily seen. Central tendon was transected sharply and prior to doing so, a 2-0 PDS suture was placed through the bulb and tied. Once the tendon was transected, the urethra appeared to gain 3 to 4 cm in mobilization. We then opened the sling. Small stab incisions were made 2 cm below adductor longus tendon insertion. Helical trocars were used per block saw operator instructions and were placed from the outside in fashion through the obturator membrane and brought out at the level of the rami. The sling was back-loaded onto the trocars, and the arms of the sling were brought out carefully. The sling was tensioned appropriately until clamshell effect was seen. We then transected the redundant arms of the sling. The previously placed 2-0 PDS sutures in the central tendon was secured to the midline posterior aspect of the sling. Another 2-0 PDS suture was used to secure the anterior midline portion the sling to the bulb. We then removed Rolle catheter and performed cystourethroscopy with flexible 16-[place] cystoscope. The bladder showed no evidence of injury. I was able to visualize bilateral clear ureteral efflux. Upon slowly removing the cystoscope, excellent mucosal coaptation was seen, and there was no evidence of sling involvement into the urethra. We then replaced a 14-[place] Rolle catheter. His wound was copiously irrigated. Then 3-0 chromic suture was used to reapproximate bulbocavernosus muscle. Inferiorly adequate hemostasis but was oozy throughout the procedure. Of note, he did hold his perioperative blood thinners. Another layer of 3-0 chromic suture closure was performed. This was followed by 4 interrupted 3-0 chromic sutures reapproximating the skin edges. He was then extubated and taken to PACU for further recovery. ESTIMATED BLOOD LOSS: None. COMPLICATIONS: None. SPECIMENS: None. DRAINS: A 14-[place] Rolle catheter. DISPOSITION: To PACU and subsequently home with prescriptions for [place], Bactrim and Pyridium and instructions to restart his Eliquis 3 days after surgery. ADDENDUM: In the recovery room, Mr. Saha complained of chest pain and shortness of breath, and given his cardiac history, anesthesiologist felt more comfortable if mud mixer helper was consulted. The patient was observed overnight. We will do so per their recommendations. cc: MD Barber Ventura MD
== END 2019-10-21 16:31 | disposition home or self-care (01) ==
LOC: 2N 06:22 → OR 06:22
PROVIDERS: ADMIT Internal Medicine; ATTEND Urology